=== PATIENT | male | born 1960 | race Caucasian/White ===

== ENCOUNTER 2018-01-25 05:07 | Day surgery (SDC) | payer OTHER ==
[~2018-01-25] VITALS: Ht 180.3 cm; Wt 83.9 kg
--- NOTE | ~2018-01-25 | OP ---
PATIENT NAME: SHANITA MARTIN MEDICAL RECORD: [id number] :58 LOCATION:[facility] ADMISSION DATE: SURGEON: BLANCHE PIERRE DO DATE OF OPERATION: 01/25/2018 PROCEDURE PERFORMED: Left middle finger trigger finger release. PREOPERATIVE DIAGNOSIS: Left middle finger trigger finger. POSTOPERATIVE DIAGNOSIS: Left middle finger trigger finger. INDICATIONS: Mr. Martin is a 58-year-old man who presented to my office last year, complaining of a middle trigger finger that has been bothering for some time, injected it, it did provide some relief; however, it returned and we injected one more time and provided him relief for a short time and then he returned to my office last week and said he was tired to dealing with it and would like something done. He was informed of the risks and benefits of procedure including damage to nerve, need for further surgery, and infection. He was aware that and consented to the procedure. SURGEON: Blanche Pierre DO. DESCRIPTION OF PROCEDURE: The patient was taken to the operative suite. A timeout was performed. Everyone was in agreement with the correct side, site, and patient. The left upper extremity was prepped and draped in sterile fashion. The patient had been given general anesthetic and a gram of Ancef preop prior to this. Once the left arm was prepped and draped in sterile fashion with the tourniquet above the elbow under the drapes, the left upper extremity was exsanguinated with an Esmarch, tourniquet was inflated to 250 mmHg and was up for approximately 12 minutes. A skin incision was made in the more distal crease of the palm and with a 15 blade scalpel and then blunt dissection was made with 2 Ragnells down to the tendon sheath itself of the middle finger. Once the tendon sheath was isolated, a small incision was made into the tendon sheath and it was released both distally and proximally and he had quite a bit of synovial inflammation in the tendon sheath itself. This was cleared out. The tendon was brought out through the incision ensuring a complete release. The tourniquet was then let down and any bleeders were coagulated at that time with a pickup and a Bovie acting as a bipolar device. Then, the incision was injected with 5 mL of 0.5% Marcaine without epinephrine and 3 simple interrupted sutures of 5-0 nylon were placed over the incision site. After this was done, the hand was cleaned and Adaptic, 4 x 4s, Kerlix and light Coban was rolled onto the hand lightly. The patient was awakened and taken to recovery in stable condition. No complications. Blood loss was minimal. TRANSINT:[id number] Voice Confirmation ID: [id number] DOCUMENT ID: [id number] BLANCHE PIERRE DO at 0753 CC: [id number] DICTATION DATE: 01/25/18 08 HIGH PRESSURE CLEANER: 01/25/18 1059 [facility] 01/25/18 [id number] [place] [address]
[~2018-01-25 05:07] MED LIST: ADCIRCA20 MG PO; BUPRENORPHIN-N1 EACH SL; CYCLOBENZAPRINE10 MG PO; FLOVENT DI50 MCG/DIS INH; FOLIC ACID1 MG PO; HEALTHYLAX17 GM PO; LIPITOR80 MG PO; PHENERGAN25 M1 PO; PRINIVIL20 MG PO; PROZAC20 MG PO; ULTRAM50 MG PO; VIAGRA50 MG; WELLBUTRIN XL150 M1
[2018-01-25 05:29] LABS: HEMATOCRIT 40.7 % (42.0-54.0); HEMOGLOBIN 13.8 g/dL (13.5-17.5); MCH 27.7 pg (26.0-34.0); MCHC 33.9 g/dL (31.0-37.0); MCV 81.7 fL (80.0-100.0); MEAN PLATELET VOLUME 9.1 fL (7.4-10.4); RBC 4.98 10x6/uL (4.20-6.10); RDW 16.4 % (11.5-14.5); WBC 5.2 10x3/uL (4.8-10.8)
[2018-01-25 06:47] VITALS: BP 122/77; Ht 180.3 cm; Wt 83.9 kg
[2018-01-25] MEDS ORDERED: PERCOCET 5-3251 TAB PO (08:06)
[2018-01-25] MEDS ORDERED: DURICEF500 MG PO (08:06)
== END 2018-01-25 09:45 | disposition home or self-care (01) ==
LOC: D.OPS 05:07 → D.PAN 07:30 → D.OPS 07:30
PROVIDERS: Anesthesiology
DX: M65.332 Trigger finger, left middle finger (principal); Z01.812 Encounter for preprocedural laboratory examination